=== PATIENT | female | born 1960 | race Caucasian/White ===

== ENCOUNTER → 2016-09-15 | Outpatient (CLI) | payer MEDICARE, MEDICAID ==
--- NOTE | 2016-09-15 12:19 | Diagnostic Imaging Report ---
EXAMINATION: Right breast ultrasound. INDICATION: Cyst aspiration requested by Dr. Howell around the 9 o'clock zone. This was seen on the 08/31/2016 exam. FINDINGS: The right breast is scanned around the 9 o'clock zone with the previously seen cyst not visualized, compatible with spontaneous resolution. No remaining suspicious mass is seen at this location either. No procedure was performed at this time. IMPRESSION: Negative exam. ACR BI-RADS Category 1: Negative. Dictated by: Dictated on workstation # [id number]
== END ==
LOC: RAD 08:55
PROVIDERS: ATTEND Surgery
DX: N60.01 Solitary cyst of right breast (principal)